=== PATIENT | female | born 1940 | race Caucasian/White ===

== ENCOUNTER 2017-03-17 16:31 | Emergency (ER) | payer OTHER ==
[~2017-03-17] VITALS: Ht 162.6 cm; Wt 81.7 kg
[~2017-03-17 16:31] MED LIST: ASPIRIN EC81 M1 PO; EYE DROPS GLAUCOMA; LISINOPRIL10 MG PO; NORCO 5-325 TA1 EACH PO; NORVASC 5 MG TAB5 MG; NORVASC2.5 MG; POTASSIUM20 PO; PREDNISONE 10 M10 MG PO; TOPROL XL25 MG PO; VICODIN 5-5001 EACH PO; XALATAN2.5 ML
[2017-03-17] MEDS ORDERED: VITAMIN D3400 UNIT PO (17:13)
[2017-03-17] MEDS ORDERED: UNICOMPLEX M TA1 TA1 PO (17:13)
[2017-03-17 18:25] VITALS: BP 174/80
== END 2017-03-17 18:27 | disposition home or self-care (01) ==
LOC: M.ERS 16:31
DX: S67.191A Crushing injury of left index finger, initial encounter (principal); S61.211A Laceration without foreign body of left index finger without damage to nail, initial encounter; I10 Essential (primary) hypertension; Z88.2 Allergy status to sulfonamides; Z88.5 Allergy status to narcotic agent; Z88.8 Allergy status to other drugs, medicaments and biological substances; W23.0XXA Caught, crushed, jammed, or pinched between moving objects, initial encounter; Y93.89 Activity, other specified; Y92.89 Other specified places as the place of occurrence of the external cause; Y99.8 Other external cause status

== ENCOUNTER 2017-12-10 12:05 | Emergency (ER) | payer OTHER ==
[~2017-12-10] VITALS: Ht 162.6 cm; Wt 81.7 kg
[~2017-12-10 12:05] MED LIST changes: +UNICOMPLEX M TA1 TA1 PO; +VITAMIN D3400 UNIT PO
[2017-12-10] MEDS ORDERED: NORVASC5 MG PO (12:12)
[2017-12-10] MEDS ORDERED: HYDROCODONE-AP1 EAC6 PO (13:34)
[2017-12-10 13:50] VITALS: BP 122/98
== END 2017-12-10 13:50 | disposition home or self-care (01) ==
LOC: M.ERS 12:05
DX: S63.276A Dislocation of unspecified interphalangeal joint of right little finger, initial encounter (principal); I10 Essential (primary) hypertension; Z88.5 Allergy status to narcotic agent; Z88.2 Allergy status to sulfonamides; Z88.8 Allergy status to other drugs, medicaments and biological substances; W18.39XA Other fall on same level, initial encounter; Y93.89 Activity, other specified; Y92.89 Other specified places as the place of occurrence of the external cause; Y99.8 Other external cause status